=== PATIENT | female | born 1990 | race Caucasian/White ===

== ENCOUNTER 2021-04-03 07:44 | Emergency (ER) | payer OTHER, SELFPAY ==
[2021-04-03 07:40] VITALS: BP 124/77; PULSE 92; RESP 18; TEMP 37; O2SAT 98; BMI 36.9
[2021-04-03 07:50] VITALS: PULSE 90; O2SAT 99
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
[2021-04-03 08:00] VITALS: PULSE 86; RESP 22; O2SAT 98
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
[2021-04-03 08:30] VITALS: PULSE 82; RESP 15; O2SAT 100
[2021-04-03 09:23] VITALS: BP 128/79; PULSE 76; RESP 16; O2SAT 97
== END 2021-04-03 09:36 | disposition home or self-care (01) ==
PROVIDERS: Emergency Provider Emergency Medicine
DX: S60.212A Contusion of left wrist, initial encounter (principal); M54.6 Pain in thoracic spine; M25.511 Pain in right shoulder; V89.2XXA Person injured in unspecified motor-vehicle accident, traffic, initial encounter
CPT/HCPCS: 73030; 99283; 99284

== ENCOUNTER → 2022-09-28 12:27 | Outpatient (CLI) | payer OTHER, MEDICAID, SELFPAY ==
[2022-09-28 13:24] LABS: COVID-19 CEPHEID 4-PLEX PCR Negative (Negative); Influenza A - CEPHEID Flu A NEGATIVE (NEGATIVE); Influenza B - CEPHEID Flu B NEGATIVE (NEGATIVE); Respiratory Syncytial Virus Negative (Negative)
== END ==
PROVIDERS: Visit Provider Physician Assistant
DX: R05.1 Acute cough (principal)
CPT/HCPCS: 0241U

== ENCOUNTER → 2022-09-30 08:05 | Outpatient (CLI) | payer OTHER, MEDICAID, SELFPAY | PROVIDERS: Visit Provider Registered Nurse | DX: N89.8 Other specified noninflammatory disorders of vagina (principal) | CPT/HCPCS: 87210 ==